=== PATIENT | female | born 1935 | race Caucasian/White ===

== ENCOUNTER 2019-12-15 09:32 | Emergency (ER) | payer MEDICARE ==
[~2019-12-15] VITALS: Ht 165.1 cm; Wt 63.1 kg
[~2019-12-15 09:32] MED LIST: ACET325T26 PO; ASPI-496 PO; ASPI-650 PO; CALC200T24 PO; CEFD300C37 PO; LISI1TAB23 PO; LORA0.5T PO; OXYC5TAB3 PO; SENN-193 PO; SERT100T32 PO; SIMV40TA20 PO
--- NOTE | 2019-12-15 10:10 | NUR ---
XRAY AT BEDSIDE-GROSS DISLOCATION NOTED CMS REMAINS INTACT (+1 DP PULSE) PAIN CONTROLLED WITH PO OXYCODONE ADMINISTERED EARLIER TODAY (11/19)
[2019-12-15] MEDS ORDERED: FENTANYL PF 100 MCG/2ML ONE (10:38)
[2019-12-15] MEDS ORDERED: PROPOFOL 10 MG/ML, 20ML IVPush ONE (11:30)
--- NOTE | 2019-12-15 11:40 | NUR ---
VERBAL CONSENT OBTAINED FROM DAUGHTER WHITLEY DEL CASTILLO FOR PROCEDURAL SEDATION PATIENT CONFUSED (MEDICATIONS VS. DEMENTIA) DR. GREGG WENT OVER RISK/BENFITS WITNESSED BY MARKETING OPERATIONS COORDINATOR WELL NAIN [place] DAUGHTER CONSENTED
[2019-12-15] MEDS ORDERED: PROPOFOL 10 MG/ML, 20ML ONE (11:57)
[2019-12-15] MEDS ORDERED: FENTANYL PF 100 MCG/2ML IVPush SCH (12:00)
--- NOTE | 2019-12-15 12:05 | NUR ---
TASK RN NOTE: LATE ENTRY D/T PATIENT CARE: REPORT RECEIVED FROM PRIMARY RN ANJEL. TELEPHONE CONSENT OBTAINED FOR REDUCTION OF RT HIP WITH PROCEDURAL SEDATION FROM PT'S POA VIA PHONE, WITNESSED BY THIS RN AND PRIMARY RN ANJEL. THIS RN AT BEDSIDE FOR ASSISTANCE WITH PROCEDURAL SEDATION MONITORING MD GREGG ADMINISTERED PROPOFOL AND COMPLETED REDUCTION OF RIGHT HIP WHEN PT WAS ADEQUATELY SEDATED. TIME OUT COMPLETED AT 1159, PT GIVEN 30 MG PROPOFOL AT 1159 (ADMIN BY MARU GREGG) AND AN ADDITIONAL 10 MG PROPOFOL AT 1200 (ADMIN BY MD GREGG). RT HIP REDUCED AT 1203. CMS INTACT S/P REDUCTION. BINDER APPLIED BY RN AND EDT. SEE PAPER CHARTING FOR INTRA/POST PROCEDURE VS AND SEDATION SCALE ASSESSMENT. ALL MONITORS IN PLACE PRE/INTRA/POST PROCEDURE, INCLUDING ETCO2 MONITORING. OXYGEN APPLIED VIA NC AT 2L/MIN PRIOR TO PROCEDURE START PT'S SPO2 WAS 92% ON ROOM AIR PRE PROCEDURE. PT AWAKE, ALERT BUT CONFUSED PRIOR TO PROCEDURE. PT REMAINS DROWSY BUT AWAKENS TO VOICE AND ANSWERS QUESTIONS AT THIS TIME. THIS RN REMAINS AT BEDSIDE FOR POST PROCEDURE MONITORING PER POLICY.
--- NOTE | 2019-12-15 12:12 | NUR ---
XRAY AT BEDSIDE FOR POST REDUCTION FILM.
--- NOTE | 2019-12-15 12:27 | NUR ---
PT AWAKE, ORIENTED TO BASELINE AT THIS TIME. RESPS EVEN AND UNLABORED. VSS. CMS INTACT TO RT LE. +3 RT DORSALIS PULSE. PT DENIES PAIN. PT REPORTS SENSATION INTACT TO RIGHT FOOT, ABLE TO MOVE RIGHT TOES. BINDER IN PLACE AROUND BILATERAL THIGHS TO KEEP HIP IN PLACE (PLACED PER MD'S ORDER). AWAITING RADIOLOGY RESULTS AND DISPO.
[2019-12-15] MEDS ORDERED: FENTANYL PF 100 MCG/2ML IVPush ONE (12:30)
--- NOTE | 2019-12-15 12:45 | NUR ---
TASK/PROCEDURAL RN NOTE: PT A&O TO BASELINE, SPEAKING CLEARLY. RESPS EVEN AND UNLABORED. PT DENIES PAIN. ALL MONITORS REMAIN IN PLACE, VSS. REPORT GIVEN BACK TO PRIMARY RN
--- NOTE | 2019-12-15 13:59 | NUR ---
pT RESTING IN BED. VSIsabella. EMIRN
[2019-12-15 14:30] VITALS: BP 138/72
[2019-12-20] MEDS ORDERED: LIDO700A20 TD (21:22)
== END 2019-12-15 14:44 | disposition home or self-care (01) ==
LOC: ED 09:44
DX: S73.014A Posterior dislocation of right hip, initial encounter (principal); I10 Essential (primary) hypertension; Z86.718 Personal history of other venous thrombosis and embolism; X58.XXXA Exposure to other specified factors, initial encounter; Y93.89 Activity, other specified; Y92.89 Other specified places as the place of occurrence of the external cause; Y99.8 Other external cause status
CPT/HCPCS: 27265; 72170; 73502; 96374; 96375; 99285; J2704; J3010